=== PATIENT | male | born 1955 | race African-American/Black ===

== ENCOUNTER 2017-11-15 19:37 | Emergency (ER) | payer OTHER ==
[~2017-11-15] VITALS: Ht 185.4 cm; Wt 97.0 kg
[2017-11-15] MEDS ORDERED: SILVADENE20 GM TP (20:55)
[2017-11-15 21:20] VITALS: BP 127/73
== END 2017-11-15 21:22 | disposition home or self-care (01) ==
LOC: EME 19:37
DX: T24.211A Burn of second degree of right thigh, initial encounter (principal); T31.0 Burns involving less than 10% of body surface; F17.200 Nicotine dependence, unspecified, uncomplicated; X16.XXXA Contact with hot heating appliances, radiators and pipes, initial encounter
CPT/HCPCS: 99281; 99284

== ENCOUNTER 2018-01-05 05:54 | Inpatient (IN) | payer OTHER ==
[~2018-01-05] VITALS: Ht 185.4 cm; Wt 101.4 kg
[2018-01-05] VITALS (9 sets, daily range): BP systolic 93–128; BP diastolic 49–101
[~2018-01-05 05:54] MED LIST: SILVADENE20 GM TP
[2018-01-05 06:35] LABS: BASE EXCESS -10.2 mEq/L (-3 to +3); BICARBONATE 14.9 mEq/L (22-26); CARBOXY HGB 3.7 % (0-5); COMMENTS - BLOOD GASES C+A+; DEVICE NIV; FI02 60 %; METHEMOGLOBIN 0.8 % (0-1.5); MODE SPONT NIV; PCO2 31 mm Hg (35-45); PEEP 8 CM/H20; PO2 123 mm Hg (80-100); PRES. SUPPORT 8 CM/H2O; SITE LR; TOTAL RESP RATE 23 resp/min; pH 7.29 (7.35-7.45)
[2018-01-05 06:48] LABS: HEMATOCRIT 50.4 % (38.0-50.0); HEMOGLOBIN 17.1 G/DL (12.5-16.6); MCH 33.7 PG (29.0-34.0); MCHC 33.9 G/DL (30.0-36.0); MCV 99.2 FL (86-99); PLATELET COUNT 198 K/uL (156-360); RBC DIS.WIDTH-SD 47.9 % (39-53); RED BLOOD COUNT 5.08 M/uL (4.00-5.50); WHITE BLOOD COUNT 11.8 K/uL (4.1-10.2)
[2018-01-05 06:54] LABS: INTER. NORMALIZED RATIO 1.1
[2018-01-05 06:57] LABS: PTT 23.6 SEC (25-37)
[2018-01-05 07:08] LABS: CHLORIDE 108 MEQ/L (99-109); POTASSIUM 4.6 MEQ/L (3.7-5.4); SODIUM 142 MEQ/L (136-147)
[2018-01-05 07:13] LABS: CREATININE 1.7 MG/DL (0.6-1.3); GFR ESTIMATE (CALCULATED) 53 mL/min/ (58.99-99999); GLUCOSE 135 mg/dL (70-99); SERUM ETHYL ALCOHOL 28 mg/dL; UREA NITROGEN (BUN) 16 mg/dL (9-23)
[2018-01-05 07:20] LABS: TROP-I INTERPRETATION POSITIVE; TROPONIN-I 4.58 ng/mL (0.0-0.30)
[2018-01-05 08:18] LABS: APPEARANCE SL.HAZY ((CLEAR)); BILIRUBIN NEGATIVE; BLOOD MODERATE; COLOR YELLOW ((YELLOW)); GLUCOSE (STRIP) 50; KETONES NEGATIVE; LEUKOCYTES SMALL; NITRITE NEGATIVE; PROTEIN (STRIP) 30; SPECIFIC GRAVITY 1.012 (1.000-1.030); UROBILINOGEN 0.2 MG/DL (0.2-1.0)
[2018-01-05 08:32] LABS: BACTERIA 1+ /HPF; CALCIUM OXALATE CRYSTALS 1+ /HPF; EPITHELIAL CELLS RARE /HPF; MUCUS TRACE /LPF; RED BLOOD CELLS 0-5 /HPF (0-5); UCUL ADDED? YES
[2018-01-05 08:33] LABS: AMPHETAMINE NEGATIVE (500 ng/mL); BARBITURATES NEGATIVE (200 ng/mL); BENZODIAZEPINES NEGATIVE (150 ng/mL); BUPRENORPHINE NEGATIVE (10 ng/mL); COCAINE PRESUMPTIVE POSITIVE (150 ng/mL); METHADONE NEGATIVE (200 ng/mL); METHAMPHETAMINE NEGATIVE (500 ng/mL); OPIATES (MORPHINE) NEGATIVE (100 ng/mL); OXYCODONE NEGATIVE (100 ng/mL); PHENCYCLIDINE NEGATIVE (25 ng/mL); PROPOXYPHENE NEGATIVE (300 ng/mL); THC CANNABINOIDS PRESUMPTIVE POSITIVE (50 ng/mL); TRICYCLIC ANTIDEPRESSANTS NEGATIVE (300 ng/mL)
[2018-01-05 08:40] LABS: BASE EXCESS -12.2 mEq/L (-3 to +3); BICARBONATE 18.6 mEq/L (22-26); CARBOXY HGB 2.3 % (0-5); METHEMOGLOBIN 1.6 % (0-1.5); PCO2 60 mm Hg (35-45); PO2 40 mm Hg (80-100)
[2018-01-05 08:42] LABS: COMMENTS - BLOOD GASES CATH LAB DRAW
[2018-01-05 12:01] LABS: BASE EXCESS -13.1 mEq/L (-3 to +3); BICARBONATE 17.4 mEq/L (22-26); CARBOXY HGB 2.5 % (0-5); METHEMOGLOBIN 1.4 % (0-1.5); PCO2 56 mm Hg (35-45); PO2 91 mm Hg (80-100)
[2018-01-05 12:02] LABS: COMMENTS - BLOOD GASES A+C+; DEVICE 840VENT; FI02 100 %; MECHANICAL RATE 25 resp/min; MODE AC; SITE RR; TIDAL VOLUME 500 ML; TOTAL RESP RATE 28 resp/min
[2018-01-05 12:03] LABS: PEEP 12 CM/H20
[2018-01-05 12:50] LABS: BASE EXCESS -12.7 mEq/L (-3 to +3); CARBOXY HGB 2.5 % (0-5); METHEMOGLOBIN 1.6 % (0-1.5); PCO2 58 mm Hg (35-45); PO2 65 mm Hg (80-100)
[2018-01-05 12:51] LABS: COMMENTS - BLOOD GASES A+C+; DEVICE 840VENT; FI02 100 %; MECHANICAL RATE 30 resp/min; MODE AC; PEEP 10 CM/H20; SITE RR; TIDAL VOLUME 500 ML; TOTAL RESP RATE 30 resp/min
[2018-01-05 13:00] LABS: INTER. NORMALIZED RATIO 1.1
[2018-01-05 13:30] LABS: BASOPHIL (%) 0.2 % (0-1); EOSINOPHIL (%) 0 % (0-5); HEMATOCRIT 59.4 % (38.0-50.0); IMMATURE GRANULOCYTE (%) 0.8 % (0.0-0.7); LYMPHOCYTE (%) 6.5 % (15-42); LYMPHOCYTE COUNT 1.2 K/uL (1.0-2.8); MCH 33.6 PG (29.0-34.0); MCHC 33.3 G/DL (30.0-36.0); MCV 100.7 FL (86-99); MONOCYTE (%) 9.3 % (3-12); MONOCYTE COUNT 1.7 K/uL (0-0.8); NEUTROPHIL (%) 83.2 % (45-76); NEUTROPHIL COUNT 15.3 K/uL (1.8-6.4); PLATELET COUNT 230 K/uL (156-360); RBC DIS.WIDTH-CV 13.4 % (11.8-14.6); RBC DIS.WIDTH-SD 50.2 % (39-53); WHITE BLOOD COUNT 18.4 K/uL (4.1-10.2)
[2018-01-05 13:34] LABS: HEMOGLOBIN 19.8 G/DL (12.5-16.6)
[2018-01-05 13:42] LABS: TROP-I INTERPRETATION POSITIVE; TROPONIN-I 46.27 ng/mL (0.0-0.30)
[2018-01-05 14:07] LABS: ALBUMIN 4.2 G/DL (3.2-4.8); ALKALINE PHOSPHATASE 106 IU/L (3-129); ALT (GPT) 55 IU/L (3-49); CHLORIDE 103 MEQ/L (99-109); CREATININE 1.8 MG/DL (0.6-1.3); GFR ESTIMATE (CALCULATED) 49 mL/min/ (58.99-99999); GLUCOSE 144 mg/dL (70-99); HIGH-SENS C-REACTIVE PROTEIN 1.78 MG/DL (0.02-0.20); MAGNESIUM 2.4 mg/dl (1.3-2.7); PHOSPHORUS 8.6 mg/dL (2.5-4.9); TOTAL BILIRUBIN 0.8 MG/DL (0.0-1.0); TOTAL PROTEIN 7.9 G/DL (6.4-8.3); UREA NITROGEN (BUN) 19 mg/dL (9-23)
[2018-01-05 14:09] LABS: POTASSIUM 5.9 MEQ/L (3.7-5.4); SODIUM 134 MEQ/L (136-147)
[2018-01-05] MEDS ORDERED: PRILOSEC20 MG PO (14:12)
[2018-01-05] MEDS ORDERED: IBUPROFEN800 MG PO (14:12)
[2018-01-05] MEDS ORDERED: VITAMIN D31000 UNI2 PO (14:13)
[2018-01-05] MEDS ORDERED: LOPRESSOR25 MG PO (14:13)
[2018-01-05] MEDS ORDERED: ATORVASTATIN CA40 MG PO (14:13)
[2018-01-05 14:31] LABS: AST (GOT) 199 IU/L (2-34); CREATINE KINASE 1770 IU/L (1-294)
[2018-01-05 14:33] LABS: CK-MB 334.7 ng/mL (0.0-4.9); CKMB RELATIVE INDEX 18.9 (0.0-3.9); TOTAL CK 1770 IU/L (1-294)
[2018-01-05 15:12] LABS: INTER. NORMALIZED RATIO 1.1
[2018-01-05 15:21] LABS: PTT 38.5 SEC (25-37)
[2018-01-05 15:34] LABS: BASE EXCESS -9.8 mEq/L (-3 to +3); BICARBONATE 16.7 mEq/L (22-26); CARBOXY HGB 1.8 % (0-5); METHEMOGLOBIN 1.6 % (0-1.5)
[2018-01-05 15:35] LABS: PCO2 38 mm Hg (35-45); PO2 125 mm Hg (80-100); SITE RR; pH 7.25 (7.35-7.45)
[2018-01-05 15:36] LABS: DEVICE VENT; FI02 100 %; MECHANICAL RATE 25 resp/min; MODE AC; PEEP 10 CM/H20; TIDAL VOLUME 550 ML; TOTAL RESP RATE 28 resp/min
[2018-01-05 19:03] LABS: TROP-I INTERPRETATION POSITIVE
[2018-01-05 19:16] LABS: CK-MB > 300.0 ng/mL (0.0-4.9)
[2018-01-05 19:19] LABS: TROPONIN-I 60.05 ng/mL (0.0-0.30)
[2018-01-05 19:25] LABS: CHLORIDE 104 MEQ/L (99-109); CKMB RELATIVE INDEX 13.9 (0.0-3.9); CREATININE 2.2 MG/DL (0.6-1.3); GFR ESTIMATE (CALCULATED) 39 mL/min/ (58.99-99999); GLUCOSE 139 mg/dL (70-99); SODIUM 138 MEQ/L (136-147); TOTAL CK 2161 IU/L (1-294); UREA NITROGEN (BUN) 23 mg/dL (9-23)
[2018-01-05 19:26] LABS: CREATINE KINASE 2161 IU/L (1-294); POTASSIUM 7.4 MEQ/L (3.7-5.4)
[2018-01-06 00:58] LABS: TROP-I INTERPRETATION POSITIVE; TROPONIN-I 43.46 ng/mL (0.0-0.30)
[2018-01-06 01:21] LABS: TROP-I INTERPRETATION POSITIVE
[2018-01-06 01:23] LABS: CK-MB 268.4 ng/mL (0.0-4.9)
[2018-01-06 01:24] LABS: TROPONIN-I 39.46 ng/mL (0.0-0.30)
[2018-01-06 01:57] LABS: CHLORIDE 110 MEQ/L (99-109); GLUCOSE 142 mg/dL (70-99); UREA NITROGEN (BUN) 24 mg/dL (9-23)
[2018-01-06 01:58] LABS: POTASSIUM 5.1 MEQ/L (3.7-5.4); SODIUM 145 MEQ/L (136-147)
[2018-01-06 02:26] LABS: GFR ESTIMATE (CALCULATED) 44 mL/min/ (58.99-99999)
[2018-01-06 03:26] LABS: CKMB RELATIVE INDEX 15.5 (0.0-3.9); CREATINE KINASE 1728 IU/L (1-294); TOTAL CK 1728 IU/L (1-294)
[2018-01-06 06:17] LABS: CHLORIDE 109 MEQ/L (99-109); CREATININE 1.9 MG/DL (0.6-1.3); GFR ESTIMATE (CALCULATED) 47 mL/min/ (58.99-99999); GLUCOSE 146 mg/dL (70-99); HDL CHOLESTEROL 46 MG/DL (Desirable>=40); LDL CHOLESTEROL 62 mg/dL (Desirable<100); NON-HDL CHOLESTEROL 94 mg/dL (Desirable<160); POTASSIUM 5.2 MEQ/L (3.7-5.4); SODIUM 143 MEQ/L (136-147); TOTAL CHOLESTEROL 140 mg/dL (Desirable<200); TRIGLYCERIDES 158 MG/DL (Normal: <150); UREA NITROGEN (BUN) 25 mg/dL (9-23)
[2018-01-06 06:22] LABS: BASOPHIL (%) 0.4 % (0-1); BASOPHIL COUNT 0.1 K/uL (0-0.1); EOSINOPHIL (%) 0 % (0-5); HEMATOCRIT 53.6 % (38.0-50.0); HEMOGLOBIN 18.3 G/DL (12.5-16.6); IMMATURE GRANULOCYTE (%) 0.5 % (0.0-0.7); LYMPHOCYTE (%) 13.8 % (15-42); LYMPHOCYTE COUNT 2.6 K/uL (1.0-2.8); MCH 33.7 PG (29.0-34.0); MCHC 34.1 G/DL (30.0-36.0); MCV 98.7 FL (86-99); MONOCYTE (%) 8.6 % (3-12); MONOCYTE COUNT 1.6 K/uL (0-0.8); NEUTROPHIL (%) 76.7 % (45-76); NEUTROPHIL COUNT 14.2 K/uL (1.8-6.4); RBC DIS.WIDTH-CV 13.5 % (11.8-14.6); RED BLOOD COUNT 5.43 M/uL (4.00-5.50); WHITE BLOOD COUNT 18.5 K/uL (4.1-10.2)
[2018-01-06 06:45] LABS: HEMATOLOGY COMMENT 1 SMEAR COMPATIBLE; PLAT.SUFFICIENCY DECREASED
[2018-01-06 06:48] LABS: PLATELET COUNT 142 K/uL (156-360)
[2018-01-06 08:00] VITALS: BP 137/56
[2018-01-06 10:00] VITALS: BP 93/59
[2018-01-06 10:59] LABS: BASE EXCESS 0 mEq/L (-3 to +3); CARBOXY HGB 1.2 % (0-5); METHEMOGLOBIN 0 % (0-1.5); PCO2 36 mm Hg (35-45); PO2 117 mm Hg (80-100)
[2018-01-06 11:06] LABS: CARBON DIOXIDE (BICARBONATE) 27.4 MEQ/L (20-31)
[2018-01-06 11:32] LABS: BICARBONATE 23.9 mEq/L (22-26); pH 7.43 (7.35-7.45)
[2018-01-06 11:33] LABS: COMMENTS - BLOOD GASES A+C+; DEVICE VENT; FI02 60 %; MECHANICAL RATE 25 resp/min; MODE ACVC; PEEP 10 CM/H20; SITE RR; TIDAL VOLUME 550 ML; TOTAL RESP RATE 25 resp/min
[2018-01-06 11:54] LABS: COMMENTS - BLOOD GASES VENOUS SAMPLE; FI02 50 %; PO2 40 mm Hg (80-100)
[2018-01-06 11:55] LABS: O2 SATURATION (CALCULATED) 72.4 % (95-99)
[2018-01-06 11:56] LABS: SITE CENTRAL LINE
[2018-01-07] VITALS (19 sets, daily range): BP systolic 89–120; BP diastolic 52–71
[2018-01-07 05:01] LABS: BASOPHIL (%) 0.5 % (0-1); BASOPHIL COUNT 0.1 K/uL (0-0.1); EOSINOPHIL (%) 1.2 % (0-5); EOSINOPHIL COUNT 0.1 K/uL (0-0.3); IMMATURE GRANULOCYTE (%) 0.4 % (0.0-0.7); LYMPHOCYTE (%) 26.2 % (15-42); LYMPHOCYTE COUNT 2.8 K/uL (1.0-2.8); MCH 34.3 PG (29.0-34.0); MCHC 34.4 G/DL (30.0-36.0); MCV 99.4 FL (86-99); MONOCYTE (%) 8.8 % (3-12); MONOCYTE COUNT 0.9 K/uL (0-0.8); NEUTROPHIL (%) 62.9 % (45-76); NEUTROPHIL COUNT 6.7 K/uL (1.8-6.4); PLATELET COUNT 113 K/uL (156-360); RBC DIS.WIDTH-CV 13.4 % (11.8-14.6); RBC DIS.WIDTH-SD 48.7 % (39-53); WHITE BLOOD COUNT 10.7 K/uL (4.1-10.2)
[2018-01-07 05:02] LABS: HEMOGLOBIN 12.4 G/DL (12.5-16.6); RED BLOOD COUNT 3.62 M/uL (4.00-5.50)
[2018-01-07 06:04] LABS: ALBUMIN 2.8 G/DL (3.2-4.8); ALT (GPT) 37 IU/L (3-49); AST (GOT) 146 IU/L (2-34); CHLORIDE 112 MEQ/L (99-109); SODIUM 145 MEQ/L (136-147); UREA NITROGEN (BUN) 18 mg/dL (9-23)
[2018-01-07 06:07] LABS: CREATININE 1.2 MG/DL (0.6-1.3); GFR ESTIMATE (CALCULATED) > 59 mL/min/ (58.99-99999); GLUCOSE 109 mg/dL (70-99); POTASSIUM 3.7 MEQ/L (3.7-5.4)
[2018-01-07 06:08] LABS: ALKALINE PHOSPHATASE 47 IU/L (3-129); TOTAL PROTEIN 5.3 G/DL (6.4-8.3)
[2018-01-07 09:03] LABS: HEMOGLOBIN A1c (GLYCOHEMOGLOB) 5.9 % (Below 5.7)
[2018-01-07 11:53] LABS: VANCOMYCIN, TROUGH 4.8 MCG/ML (10-20)
[2018-01-07 15:16] LABS: PHOSPHORUS 2.2 mg/dL (2.5-4.9)
[2018-01-08] VITALS (24 sets, daily range): BP systolic 87–152; BP diastolic 51–92
[2018-01-08 07:46] LABS: BASOPHIL (%) 0.3 % (0-1); EOSINOPHIL (%) 2.1 % (0-5); EOSINOPHIL COUNT 0.2 K/uL (0-0.3); HEMOGLOBIN 11.4 G/DL (12.5-16.6); IMMATURE GRANULOCYTE (%) 0.7 % (0.0-0.7); LYMPHOCYTE COUNT 1.9 K/uL (1.0-2.8); MCH 33.9 PG (29.0-34.0); MCHC 33.5 G/DL (30.0-36.0); MCV 101.2 FL (86-99); MONOCYTE (%) 12.3 % (3-12); MONOCYTE COUNT 0.9 K/uL (0-0.8); NEUTROPHIL (%) 58.6 % (45-76); NEUTROPHIL COUNT 4.2 K/uL (1.8-6.4); PLATELET COUNT 97 K/uL (156-360); RBC DIS.WIDTH-CV 13.6 % (11.8-14.6); RBC DIS.WIDTH-SD 50.2 % (39-53); RED BLOOD COUNT 3.36 M/uL (4.00-5.50); WHITE BLOOD COUNT 7.2 K/uL (4.1-10.2)
[2018-01-08 08:16] LABS: ALKALINE PHOSPHATASE 47 IU/L (3-129); ALT (GPT) 31 IU/L (3-49); AST (GOT) 105 IU/L (2-34); CHLORIDE 114 MEQ/L (99-109); CREATININE 1.1 MG/DL (0.6-1.3); GFR ESTIMATE (CALCULATED) > 59 mL/min/ (58.99-99999); GLUCOSE 98 mg/dL (70-99); POTASSIUM 3.6 MEQ/L (3.7-5.4); SODIUM 145 MEQ/L (136-147); TOTAL PROTEIN 5.2 G/DL (6.4-8.3); UREA NITROGEN (BUN) 15 mg/dL (9-23)
[2018-01-08 08:18] LABS: TOTAL BILIRUBIN 1.3 MG/DL (0.0-1.0)
[2018-01-08 13:04] LABS: BASE EXCESS 1.5 mEq/L (-3 to +3); BICARBONATE 26.6 mEq/L (22-26); CARBOXY HGB 1.9 % (0-5); METHEMOGLOBIN 1.7 % (0-1.5)
[2018-01-08 13:05] LABS: COMMENTS - BLOOD GASES +C; CONTINUOUS POS AIRWAY PRESSURE 5 cm H2O; DEVICE PB940; FI02 40 %; MECHANICAL RATE 18 resp/min; MODE TUBE COMP; PCO2 43 mm Hg (35-45); PO2 75 mm Hg (80-100); SITE LR +A
[2018-01-09] VITALS (15 sets, daily range): BP systolic 92–138; BP diastolic 52–76
[2018-01-09 07:17] LABS: BASOPHIL (%) 0 % (0-1); EOSINOPHIL (%) 0 % (0-5); HEMATOCRIT 33.1 % (38.0-50.0); HEMOGLOBIN 11.2 G/DL (12.5-16.6); IMMATURE GRANULOCYTE (%) 0.4 % (0.0-0.7); LYMPHOCYTE (%) 14.1 % (15-42); LYMPHOCYTE COUNT 0.7 K/uL (1.0-2.8); MCH 34.1 PG (29.0-34.0); MCHC 33.8 G/DL (30.0-36.0); MCV 100.9 FL (86-99); MONOCYTE (%) 6.3 % (3-12); MONOCYTE COUNT 0.3 K/uL (0-0.8); NEUTROPHIL (%) 79.2 % (45-76); NEUTROPHIL COUNT 4.1 K/uL (1.8-6.4); PLATELET COUNT 101 K/uL (156-360); RBC DIS.WIDTH-SD 48.1 % (39-53); RED BLOOD COUNT 3.28 M/uL (4.00-5.50); WHITE BLOOD COUNT 5.1 K/uL (4.1-10.2)
[2018-01-09 07:45] LABS: ALBUMIN 3.3 G/DL (3.2-4.8); ALKALINE PHOSPHATASE 49 IU/L (3-129); ALT (GPT) 34 IU/L (3-49); AST (GOT) 75 IU/L (2-34); CHLORIDE 109 MEQ/L (99-109); GFR ESTIMATE (CALCULATED) > 59 mL/min/ (58.99-99999); GLUCOSE 149 mg/dL (70-99); MAGNESIUM 2.1 mg/dl (1.3-2.7); PHOSPHORUS 4.4 mg/dL (2.5-4.9); POTASSIUM 4.2 MEQ/L (3.7-5.4); SODIUM 143 MEQ/L (136-147); TOTAL BILIRUBIN 1.3 MG/DL (0.0-1.0); TOTAL PROTEIN 5.7 G/DL (6.4-8.3); UREA NITROGEN (BUN) 14 mg/dL (9-23)
[2018-01-10] VITALS: BP 114/65
[2018-01-10 04:00] VITALS: BP 105/56
[2018-01-10 07:05] LABS: BASOPHIL (%) 0.1 % (0-1); EOSINOPHIL (%) 0 % (0-5); HEMATOCRIT 34.8 % (38.0-50.0); HEMOGLOBIN 11.8 G/DL (12.5-16.6); IMMATURE GRANULOCYTE (%) 0.3 % (0.0-0.7); LYMPHOCYTE (%) 13.8 % (15-42); LYMPHOCYTE COUNT 1.2 K/uL (1.0-2.8); MCH 33.7 PG (29.0-34.0); MCHC 33.9 G/DL (30.0-36.0); MCV 99.4 FL (86-99); MONOCYTE (%) 8.8 % (3-12); MONOCYTE COUNT 0.8 K/uL (0-0.8); NEUTROPHIL COUNT 6.7 K/uL (1.8-6.4); RBC DIS.WIDTH-CV 13.1 % (11.8-14.6); RBC DIS.WIDTH-SD 46.6 % (39-53); WHITE BLOOD COUNT 8.7 K/uL (4.1-10.2)
[2018-01-10 07:07] LABS: PLATELET COUNT 139 K/uL (156-360)
[2018-01-10 07:33] LABS: ALBUMIN 3.4 G/DL (3.2-4.8); ALKALINE PHOSPHATASE 46 IU/L (3-129); ALT (GPT) 38 IU/L (3-49); AST (GOT) 58 IU/L (2-34); CHLORIDE 107 MEQ/L (99-109); GFR ESTIMATE (CALCULATED) > 59 mL/min/ (58.99-99999); GLUCOSE 138 mg/dL (70-99); MAGNESIUM 2.3 mg/dl (1.3-2.7); PHOSPHORUS 3.4 mg/dL (2.5-4.9); POTASSIUM 4.4 MEQ/L (3.7-5.4); SODIUM 141 MEQ/L (136-147); TOTAL BILIRUBIN 1.3 MG/DL (0.0-1.0); TOTAL PROTEIN 5.9 G/DL (6.4-8.3)
[2018-01-10 07:36] LABS: UREA NITROGEN (BUN) 22 mg/dL (9-23)
[2018-01-10 08:59] VITALS: BP 113/69
[2018-01-10] MEDS ORDERED: LOPRESSOR25 MG PO (11:13)
[2018-01-10] MEDS ORDERED: NITROSTAT0.4 MG SL (11:13)
[2018-01-10] MEDS ORDERED: LOVENOX40 MG/0.4 SC (11:13)
[2018-01-10] MEDS ORDERED: DUONEB 2.5-0.5 M3 ML AEROSOL (11:13)
[2018-01-10] MEDS ORDERED: SSD25GM TP (11:14)
[2018-01-10] MEDS ORDERED: ONDANSETRON4 MG/2 ML IV (11:14)
[2018-01-10] MEDS ORDERED: DOCUSATE SODIU100 MG PO (11:14)
[2018-01-10] MEDS ORDERED: ASPIRIN81 M2 PO (11:14)
[2018-01-10] MEDS ORDERED: MAG-AL PLUS SUS30 ML PO (11:14)
[2018-01-10] MEDS ORDERED: SOLU-MEDRO40 MG/1 ML IV (11:14)
[2018-01-10] MEDS ORDERED: FUROSEMIDE40 MG PO (11:14)
[2018-01-10] MEDS ORDERED: ZOSYN 3.3753.375 GM IV (11:15)
[2018-01-10 12:20] VITALS: BP 147/69
[2018-01-10 16:00] VITALS: BP 135/71
[2018-01-10 19:10] VITALS: BP 129/76
[2018-01-11 00:15] VITALS: BP 124/62
== END 2018-01-11 03:15 | disposition short-term general hospital (02) | DRG 981 ==
LOC: EME → EDBD 05:54 → EME 08:50 → CATH 09:08 → ENRESERV 09:46 → 4WEST 10:18 → ENRESERV 01-09 19:34 → 4EAST 01-09 21:10 → ENPENDDIS 01-10 → 4EAST 01-11 03:15
PROVIDERS: Emergency Medicine; Internal Medicine; Internal Medicine Cardiovascular Disease; Internal Medicine Critical Care Medicine; Internal Medicine Nephrology
DX: T40.5X1A Poisoning by cocaine, accidental (unintentional), initial encounter (principal); R57.0 Cardiogenic shock; I21.4 Non-ST elevation (NSTEMI) myocardial infarction; J80 Acute respiratory distress syndrome; N17.0 Acute kidney failure with tubular necrosis; J44.0 Chronic obstructive pulmonary disease with (acute) lower respiratory infection; J18.9 Pneumonia, unspecified organism; J81.0 Acute pulmonary edema; E86.9 Volume depletion, unspecified; E87.2 Acidosis; D69.59 Other secondary thrombocytopenia; D75.1 Secondary polycythemia; E87.5 Hyperkalemia; I25.10 Atherosclerotic heart disease of native coronary artery without angina pectoris; I25.82 Chronic total occlusion of coronary artery; I10 Essential (primary) hypertension; E78.5 Hyperlipidemia, unspecified; F17.200 Nicotine dependence, unspecified, uncomplicated; K21.9 Gastro-esophageal reflux disease without esophagitis; L89.152 Pressure ulcer of sacral region, stage 2; L89.311 Pressure ulcer of right buttock, stage 1; F12.90 Cannabis use, unspecified, uncomplicated; F14.90 Cocaine use, unspecified, uncomplicated; T24.221A Burn of second degree of right knee, initial encounter; X08.8XXA Exposure to other specified smoke, fire and flames, initial encounter; I25.2 Old myocardial infarction; Z23 Encounter for immunization
CPT/HCPCS: 36600; 71045; 71275; 80047; 80048; 80048 91; 80053; 80061; 80202; 81003; 82550; 82550 91; 82553; 82803; 82948; 83036; 83605; 83690; 83735; 83880; 84100; 84145 90; 84484; 84999; 85025; 85025 91; 85027; 85347; 85379; 85610; 85730; 86141; 86850; 86900; 86901; 87040; 87070; 87086; 87205; 87502; 87641; 90686; 90832; 92610 GN; 93005; 93306; 93971; 94002; 94003; 94640; 94640 76; 94799; 99202; 99281; 99285; A6214; C1725; C1751; C1757; C1769; C1887; C1894; G0480; J0610; J1644; J1650; J1940; J2250; J2543; J2704; J2920; J2930; J2997; J3010; J3246; J3370; J7030; J7050; J7070; P9045; S0028